=== PATIENT | female | born 1955 ===

== ENCOUNTER 2023-01-07 18:13 | Emergency (ER) | payer BC, MEDICARE ==
[~2023-01-07] VITALS: Wt 86.2 kg
== END 2023-01-07 23:02 | disposition home or self-care (01) ==
LOC: ED 18:13
DX: F03.90 Unspecified dementia, unspecified severity, without behavioral disturbance, psychotic disturbance, mood disturbance, and anxiety (principal); I10 Essential (primary) hypertension; Z88.8 Allergy status to other drugs, medicaments and biological substances